=== PATIENT | female | born 1950 | race Caucasian/White ===

== ENCOUNTER 2018-02-20 12:29 | Inpatient (IN) | payer OTHER ==
[~2018-02-20] VITALS: Ht 162.6 cm; Wt 88.7 kg
[2018-02-20 12:59] LABS: BASOPHIL (%) 0.6 % (0-1); EOSINOPHIL (%) 4.2 % (0-5); EOSINOPHIL COUNT 0.2 K/uL (0-0.3); HEMATOCRIT 32.5 % (36.0-46.0); HEMOGLOBIN 10.8 G/DL (11.9-15.5); IMMATURE GRANULOCYTE (%) 0.4 % (0.0-0.7); LYMPHOCYTE (%) 28.9 % (15-42); LYMPHOCYTE COUNT 1.5 K/uL (1.0-2.8); MCH 29.6 PG (29.0-34.0); MCHC 33.2 G/DL (30.0-36.0); MONOCYTE (%) 9.1 % (3-12); MONOCYTE COUNT 0.5 K/uL (0-0.8); NEUTROPHIL (%) 56.8 % (45-76); PLATELET COUNT 307 K/uL (156-360); RBC DIS.WIDTH-CV 13.6 % (11.8-14.6); RBC DIS.WIDTH-SD 44.4 % (39-53); RED BLOOD COUNT 3.65 M/uL (3.80-5.20); WHITE BLOOD COUNT 5.3 K/uL (4.1-10.2)
[2018-02-20 13:09] LABS: CHLORIDE 105 mEq/L (99-109); POTASSIUM 3.7 mEq/L (3.7-5.4)
[2018-02-20 13:10] LABS: SODIUM 141 mEq/L (136-147)
[2018-02-20 13:11] LABS: GLUCOSE 80 mg/dL (70-99); PTT 28.9 SEC (25-37)
[2018-02-20 13:15] LABS: CREATININE 0.7 mg/dL (0.6-1.3)
[2018-02-20 13:16] LABS: UREA NITROGEN (BUN) 13 mg/dL (9-23)
[2018-02-20 13:21] LABS: TROP-I INTERPRETATION NEGATIVE; TROPONIN-I < 0.01 ng/mL (0.0-0.30)
[2018-02-20 13:28] LABS: GFR ESTIMATE (CALCULATED) > 59 mL/min/
[2018-02-20 14:06] LABS: THYROTROPIN (TSH) 0.48 MIU/L (0.4-5.5)
[2018-02-20] MEDS ORDERED: NEURONTIN300 MG PO (15:26)
[2018-02-20] MEDS ORDERED: LIALDA1.2 GM PO (15:29)
[2018-02-20] MEDS ORDERED: CELEBREX200 MG PO (15:30)
[2018-02-20] MEDS ORDERED: COLESTID1 GM PO (15:31)
[2018-02-20] MEDS ORDERED: ZESTRIL40 MG PO (15:31)
[2018-02-20] MEDS ORDERED: PROZAC40 MG PO (15:31)
[2018-02-20] MEDS ORDERED: PRILOSEC20 MG PO (15:32)
[2018-02-20] MEDS ORDERED: RITALIN5 MG PO (15:32)
[2018-02-20] MEDS ORDERED: PAIN & FEVER500 MG PO (15:33)
[2018-02-20] MEDS ORDERED: MULTIVITAMIN1 EAC2 PO (15:34)
[2018-02-20] MEDS ORDERED: CALCIUM CITRAT200 MG PO (15:35)
[2018-02-20] MEDS ORDERED: VITAMIN C1000 MG PO (15:35)
[2018-02-20] MEDS ORDERED: POTASSIUM CITRA5 MEQ PO (15:36)
[2018-02-20 15:50] VITALS: BP 16/67
[2018-02-20 19:21] VITALS: BP 126/74
[2018-02-20 19:42] LABS: TROP-I INTERPRETATION NEGATIVE; TROPONIN-I 0.02 ng/mL (0.0-0.30)
[2018-02-20 23:29] VITALS: BP 123/69
[2018-02-21 01:38] LABS: TROP-I INTERPRETATION NEGATIVE; TROPONIN-I < 0.01 ng/mL (0.0-0.30)
[2018-02-21 04:51] VITALS: BP 108/72
[2018-02-21 05:05] VITALS: BP 115/57
[2018-02-21 06:59] LABS: HEMATOCRIT 30.8 % (36.0-46.0); HEMOGLOBIN 9.5 G/DL (11.9-15.5); MCH 28.1 PG (29.0-34.0); MCHC 30.8 G/DL (30.0-36.0); MCV 91.1 FL (83-99); PLATELET COUNT 294 K/uL (156-360); RBC DIS.WIDTH-CV 13.8 % (11.8-14.6); RBC DIS.WIDTH-SD 45.8 % (39-53); RED BLOOD COUNT 3.38 M/uL (3.80-5.20); WHITE BLOOD COUNT 5.8 K/uL (4.1-10.2)
[2018-02-21 07:00] VITALS: BP 129/71
[2018-02-21 07:22] LABS: CHLORIDE 107 MEQ/L (99-109); CREATININE 0.7 MG/DL (0.6-1.3); GFR ESTIMATE (CALCULATED) > 59 mL/min/; POTASSIUM 3.8 MEQ/L (3.7-5.4); SODIUM 141 MEQ/L (136-147); UREA NITROGEN (BUN) 15 mg/dL (9-23)
[2018-02-21 07:23] LABS: TROP-I INTERPRETATION NEGATIVE; TROPONIN-I < 0.01 ng/mL (0.0-0.30)
[2018-02-21 07:25] LABS: GLUCOSE 103 mg/dL (70-99)
[2018-02-21 11:15] VITALS: BP 117/70
[2018-02-21] MEDS ORDERED: CARDIZEM CD120 M1 PO (15:43)
== END 2018-02-21 18:31 | disposition home or self-care (01) | DRG 310 ==
LOC: EME 12:29 → 4EAST 14:17 → EDOF 14:17 → ENRESERV 14:20 → 4EAST 15:43
PROVIDERS: Emergency Medicine; Hospitalist; Internal Medicine Cardiovascular Disease
DX: I48.91 Unspecified atrial fibrillation (principal); I95.9 Hypotension, unspecified; T44.7X5A Adverse effect of beta-adrenoreceptor antagonists, initial encounter; E86.0 Dehydration; D64.9 Anemia, unspecified; K21.9 Gastro-esophageal reflux disease without esophagitis; I10 Essential (primary) hypertension; F32.9 Major depressive disorder, single episode, unspecified; F41.9 Anxiety disorder, unspecified; E66.9 Obesity, unspecified; Z68.33 Body mass index [BMI] 33.0-33.9, adult
CPT/HCPCS: 71045; 80048; 84443; 84484; 85025; 85027; 85610; 85730; 93005; 93306; 99281; 99285; J0282; J1644; J1940; J7030; J7060